=== PATIENT | male | born 1970 | race Hispanic/Latino ===

== ENCOUNTER 2022-08-23 17:11 | Emergency (ER) | payer OTHER ==
[~2022-08-23] VITALS: Ht 157.5 cm; Wt 90.7 kg
[2022-08-23] MEDS ORDERED: LIDOCAINE HCL100 ML MT (19:54)
== END 2022-08-23 20:03 | disposition home or self-care (01) ==
LOC: ED 17:11
DX: G47.30 Sleep apnea, unspecified (principal)
CPT/HCPCS: 70360; 87880; 99284-25